=== PATIENT | female | born 1990 | race American Indian/Alaskan Native ===

== ENCOUNTER 2017-05-22 07:01 | Emergency (ER) | payer SELFPAY ==
[2017-05-22 07:41] VITALS: BP 122/67
[2017-05-22] MEDS ORDERED: MARCAINE 0.5% INFILTRATI ONE (09:16)
[2017-05-22] MEDS ORDERED: BOOSTRIX IM ONE (09:18)
--- NOTE | 2017-05-22 09:29 | Emergency Department Report ---
- General Chief complaint: Skin/Abscess/Foreign Body Stated complaint: ABSCESS Time Seen by Provider: 05/22/17 08:48 Source: patient Mode of arrival: Ambulatory Limitations: No Limitations - History of Present Illness Initial comments: This is a 27-year-old female nontoxic, well nourished in appearance, no acute signs of distress presents to the ED c/o boil in the right groin region x 2 days. Patient stated she was shaving prior to this and developed a small boil which then got bigger over time. Patient denies any pus, drainage, fever, chills , headache, n/v, chest pain, or shortness of breathe. Allergies includes PCN. Denies PMH. MD complaint: abscess/boil -: Gradual, days(s) (2) Tetanus Up to Date: unsure Severity: mild Severity scale (0 -10): 8 Quality: aching Consistency: constant Improves with: none Worsens with: none Context: none Associated symptoms: denies other symptoms Treatments Prior to Arrival: none - Related Data Previous Rx's Medication Instructions Recorded Last Taken Type Ibuprofen [Motrin] 800 mg PO Q8HR PRN #10 tablet 06/29/16 Unknown Rx Ibuprofen [Motrin] 600 mg PO Q8H PRN #30 tablet 05/22/17 Unknown Rx Sulfamethoxazole/Trimethoprim 1 each PO BID #14 tablet 05/22/17 Unknown Rx [Bactrim Ds Tablet] Allergies Allergy/AdvReac Type Severity Reaction Status Date / Time Penicillins Allergy Anaphylaxis Verified 04/22/16 09:11 Abscess Boil HPI - HPI Chief Complaint: Skin/Abscess/Foreign Body Stated Complaint: ABSCESS Time Seen by Provider: 05/22/17 08:48 Home Medications: Previous Rx's Medication Instructions Recorded Last Taken Type Ibuprofen [Motrin] 800 mg PO Q8HR PRN #10 tablet 06/29/16 Unknown Rx Ibuprofen [Motrin] 600 mg PO Q8H PRN #30 tablet 05/22/17 Unknown Rx Sulfamethoxazole/Trimethoprim 1 each PO BID #14 tablet 05/22/17 Unknown Rx [Bactrim Ds Tablet] Allergies/Adverse Reactions: Allergies Allergy/AdvReac Type Severity Reaction Status Date / Time Penicillins Allergy Anaphylaxis Verified 04/22/16 09:11 ED Review of Systems ROS: Stated complaint: ABSCESS Other details as noted in HPI Constitutional: denies: chills, fever Eyes: denies: eye pain, eye discharge, vision change ENT: denies: ear pain, throat pain Respiratory: denies: cough, shortness of breath, wheezing Cardiovascular: denies: chest pain, palpitations Endocrine: no symptoms reported Gastrointestinal: denies: abdominal pain, nausea, diarrhea Genitourinary: denies: urgency, dysuria, discharge Musculoskeletal: denies: back pain, joint swelling, arthralgia Skin: denies: rash, lesions Neurological: denies: headache, weakness, paresthesias Psychiatric: denies: anxiety, depression Hematological/Lymphatic: denies: easy bleeding, easy bruising ED Past Medical Hx - Past Medical History Previous Medical History?: Yes Additional medical history: Boil - Surgical History Past Surgical History?: No - Social History Smoking Status: Current Some Day Smoker Substance Use Type: Alcohol, Marijuana, Non Opiate Pain - Medications Home Medications: Home Medications Medication Instructions Recorded Confirmed Last Taken Type Ibuprofen [Motrin] 800 mg PO Q8HR PRN #10 tablet 06/29/16 Unknown Rx Ibuprofen [Motrin] 600 mg PO Q8H PRN #30 tablet 05/22/17 Unknown Rx Sulfamethoxazole/Trimethoprim 1 each PO BID #14 tablet 05/22/17 Unknown Rx [Bactrim Ds Tablet] ED Physical Exam - General Limitations: No Limitations General appearance: alert, in no apparent distress - Head Head exam: Present: atraumatic, normocephalic, normal inspection - Eye Eye exam: Present: normal appearance, PERRL, EOMI. Absent: scleral icterus, conjunctival injection, nystagmus, periorbital swelling, periorbital tenderness Pupils: Present: normal accommodation - ENT ENT exam: Present: normal exam, normal orophraynx, mucous membranes moist, TM's normal bilaterally, normal external ear exam - Neck Neck exam: Present: normal inspection, full ROM. Absent: tenderness, meningismus, lymphadenopathy, thyromegaly - Respiratory Respiratory exam: Present: normal lung sounds bilaterally. Absent: respiratory distress, wheezes, rales, rhonchi, stridor, chest wall tenderness, accessory muscle use, decreased breath sounds, prolonged expiratory - Cardiovascular Cardiovascular Exam: Present: regular rate, normal rhythm, normal heart sounds. Absent: systolic murmur, diastolic murmur, rubs, gallop - GI/Abdominal GI/Abdominal exam: Present: soft, normal bowel sounds - External exam: Present: normal external exam, other (lupe RN present during exam. 2 cm abscess to right groin region present with positive induration and flutance. ). Absent: erythema, swelling, lesions, lacerations, ecchymosis, bleeding - Extremities Exam Extremities exam: Present: normal inspection, full ROM, normal capillary refill. Absent: tenderness, calf tenderness - Back Exam Back exam: Present: normal inspection, full ROM. Absent: tenderness, CVA tenderness (R), CVA tenderness (L), muscle spasm, paraspinal tenderness, vertebral tenderness, rash noted - Neurological Exam Neurological exam: Present: alert, oriented X3 - Psychiatric Psychiatric exam: Present: normal affect, normal mood - Skin Skin exam: Present: warm, dry, intact, normal color. Absent: rash ED Course Vital Signs 05/22/17 07:38 Temperature 98 F Pulse Rate 66 Respiratory 18 Rate Blood Pressure 122/67 O2 Sat by Pulse 100 Oximetry - Reevaluation(s) Reevaluation #1: 05/22/17 09:30 Patient is speaking in full sentences with no signs of distress noted. - I & D Right Groin Type of Procedure: Complex Site: right groin Blade Size: 11 I & D Procedure: betadine prep, sterile drapes applied, sterile dressing applied , gauze wick placed Progress: Under sterile field, I used Betadine to cleanse the area. I then used 0.5% Marcaine plain with 25-gauge 5/8 needle to inject area for anesthetic purposes. Total volume injected 3 mL. I then used an 11 blade to make a 1 cm incision. About 2 mL's of purulent drainage has been noted. I then used a hemostat to break the abscess formation. I then used sterile 0.9% normal saline flush to flush the wound with total volume of 40 mL used. I then put a 1/4 iodoform packing to the incision. A sterile 4 x 4 with tape has been applied as dressing. Bleeding is under control. Patient tolerated the procedure well with no signs of distress noted. ED Medical Decision Making - Medical Decision Making 27 year-old female that presents with left groin abscess. I/D has been performed with no signs of distress/ Patient tolerated well. Patient was instrcuted to return in 2 days for packing removal and reassessment. Patient received tetanus in the ED. Will be d/c with bactrim and motrin. Critical care attestation.: If time is entered above; I have spent that time in minutes in the direct care of this critically ill patient, excluding procedure time. ED Disposition Clinical Impression: Encounter for incision and drainage procedure, Abscess Disposition: TO HOME OR SELFCARE Is pt being admited?: No Does the pt Need Aspirin: No Condition: Stable Instructions: Abscess Incision and Drainage (ED), Abscess (ED), Acute Wound Care (ED), Sulfamethoxazole/Trimethoprim (By mouth), Ibuprofen (By mouth) Additional Instructions: Return in 2 days for packing removal and reassessment of the abscess. Follow-up with a primary care doctor in 3-5 days or if symptoms worsen and continue return to the ED as soon as possible. Prescriptions: Ibuprofen [Motrin] 600 mg PO Q8H PRN #30 tablet PRN Reason: Pain Sulfamethoxazole/Trimethoprim [Bactrim Ds Tablet] 1 each PO BID #14 tablet Referrals: PRIMARY MD RADHA [Primary Care Provider] - 3-5 Days CORBIN COREAS MD [Staff Physician] - 3-5 Days [facility] [Outside] - 3-5 Days [facility] [Outside] - 3-5 Days Forms: Work/School Release Form(ED)
== END 2017-05-22 09:52 | disposition home or self-care (01) ==
LOC: ED 07:01
DX: L02.214 Cutaneous abscess of groin (principal); F17.210 Nicotine dependence, cigarettes, uncomplicated; F12.10 Cannabis abuse, uncomplicated; Z88.0 Allergy status to penicillin
CPT/HCPCS: 90471; 90715; 99282

== ENCOUNTER 2018-03-04 13:03 | Emergency (ER) | payer SELFPAY ==
[2018-03-04 13:10] VITALS: BP 132/89
--- NOTE | 2018-03-04 17:18 | Emergency Department Report ---
ED ENT HPI - General Chief complaint: Upper Respiratory Infection Stated complaint: FLU/STREP THROAT Time Seen by Provider: 03/04/18 16:44 Source: patient, family Mode of arrival: Ambulatory Limitations: No Limitations - History of Present Illness Initial comments: This is 28-year-old female here report that she has sore throat and nausea and vomiting and poor appetite for the last 3 days. She says she has been having fever and chills and taken Tylenol without any relief. Patient says she has been around someone that had strep before in the past. Denies any drooling or difficulty swallowing but reports pain with swallowing at 8 out of 10. Pain is achy and no alleviating factors. Denies any cough, shortness of breath is a congestion or runny nose. Denies any abdominal pain. Denies any neck pain or stiffness. MD complaint: sore throat Onset/Timin -: days(s) Location: throat Severity: severe Severity scale (0 -10): 8 Quality: aching Consistency: constant Improves with: none Worsens with: swallowing, eating Context-Epistaxis: other (posterior distress) Associated Symptoms: fever, pain with swallowing, sore throat. denies: cough, gum swelling, toothache, tinnitus, hearing loss, discharge from ear, rhinorrhea - Related Data Previous Rx's Medication Instructions Recorded Last Taken Type Ibuprofen [Motrin] 800 mg PO Q8HR PRN #10 tablet 06/29/16 Unknown Rx Ibuprofen [Motrin] 600 mg PO Q8H PRN #30 tablet 05/22/17 Unknown Rx Sulfamethoxazole/Trimethoprim 1 each PO BID #14 tablet 05/22/17 Unknown Rx [Bactrim Ds Tablet] Clindamycin [Clindamycin CAP] 300 mg PO Q8H 10 Days #30 cap 03/04/18 Unknown Rx Ibuprofen [Motrin] 800 mg PO Q8HR PRN #15 tablet 03/04/18 Unknown Rx Ondansetron [Zofran Odt] 4 mg PO Q6H PRN #20 tab.rapdis 03/04/18 Unknown Rx Allergies Allergy/AdvReac Type Severity Reaction Status Date / Time Penicillins Allergy Anaphylaxis Verified 04/22/16 09:11 ED Dental HPI - General Chief complaint: Upper Respiratory Infection Stated complaint: FLU/STREP THROAT Time Seen by Provider: 03/04/18 16:44 Source: patient Mode of arrival: Ambulatory Limitations: No Limitations - Related Data Previous Rx's Medication Instructions Recorded Last Taken Type Ibuprofen [Motrin] 800 mg PO Q8HR PRN #10 tablet 06/29/16 Unknown Rx Ibuprofen [Motrin] 600 mg PO Q8H PRN #30 tablet 05/22/17 Unknown Rx Sulfamethoxazole/Trimethoprim 1 each PO BID #14 tablet 05/22/17 Unknown Rx [Bactrim Ds Tablet] Clindamycin [Clindamycin CAP] 300 mg PO Q8H 10 Days #30 cap 03/04/18 Unknown Rx Ibuprofen [Motrin] 800 mg PO Q8HR PRN #15 tablet 03/04/18 Unknown Rx Ondansetron [Zofran Odt] 4 mg PO Q6H PRN #20 tab.rapdis 03/04/18 Unknown Rx Allergies Allergy/AdvReac Type Severity Reaction Status Date / Time Penicillins Allergy Anaphylaxis Verified 04/22/16 09:11 ED Review of Systems ROS: Stated complaint: FLU/STREP THROAT Other details as noted in HPI Constitutional: chills, fever Eyes: denies: eye pain, eye discharge, vision change ENT: throat pain. denies: ear pain, congestion Respiratory: denies: cough, shortness of breath, SOB with exertion, SOB at rest , stridor, wheezing Cardiovascular: denies: chest pain, palpitations, edema, syncope Endocrine: no symptoms reported Gastrointestinal: nausea, vomiting. denies: abdominal pain, diarrhea Genitourinary: denies: urgency, dysuria, discharge Musculoskeletal: denies: back pain, joint swelling, arthralgia Skin: denies: rash, lesions Neurological: denies: headache ED Past Medical Hx - Past Medical History Previous Medical History?: Yes Additional medical history: Boil - Surgical History Past Surgical History?: No - Family History Family history: hypertension - Social History Smoking Status: Never Smoker Substance Use Type: Marijuana - Medications Home Medications: Home Medications Medication Instructions Recorded Confirmed Last Taken Type Ibuprofen [Motrin] 800 mg PO Q8HR PRN #10 tablet 06/29/16 Unknown Rx Ibuprofen [Motrin] 600 mg PO Q8H PRN #30 tablet 05/22/17 Unknown Rx Sulfamethoxazole/Trimethoprim 1 each PO BID #14 tablet 05/22/17 Unknown Rx [Bactrim Ds Tablet] Clindamycin [Clindamycin CAP] 300 mg PO Q8H 10 Days #30 cap 03/04/18 Unknown Rx Ibuprofen [Motrin] 800 mg PO Q8HR PRN #15 tablet 03/04/18 Unknown Rx Ondansetron [Zofran Odt] 4 mg PO Q6H PRN #20 tab.rapdis 03/04/18 Unknown Rx ED Physical Exam - General Limitations: No Limitations General appearance: alert, appears intoxicated - Head Head exam: Present: atraumatic, normocephalic - Eye Eye exam: Present: normal appearance, PERRL, EOMI Pupils: Present: normal accommodation - ENT ENT exam: Present: mucous membranes moist. Absent: normal exam - Expanded ENT Exam Expanded Mouth exam: Present: normal external inspection, tongue normal. Absent: drooling, trismus, muffled voice, laceration Teeth exam: Present: normal inspection Throat exam: Positive: tonsillar erythema, tonsillomegaly, tonsillar exudate, other (oropharynx without exudate. Uvula is midline and oral airways patent). Negative: normal inspection, R peritonsillar mass, L peritonsillar mass - Neck Neck exam: Present: normal inspection, full ROM, lymphadenopathy (anterior;), other (no C-spine tenderness). Absent: tenderness, thyromegaly - Respiratory Respiratory exam: Present: normal lung sounds bilaterally. Absent: respiratory distress, chest wall tenderness - Cardiovascular Cardiovascular Exam: Present: regular rate, normal rhythm, normal heart sounds. Absent: systolic murmur, diastolic murmur - GI/Abdominal GI/Abdominal exam: Present: soft, normal bowel sounds. Absent: distended, tenderness, rigid, mass - Extremities Exam Extremities exam: Present: normal inspection, full ROM, normal capillary refill , other (No cce. + 2 pulses in all extremities, no neurovascular compromise). Absent: tenderness, pedal edema, joint swelling, calf tenderness - Neurological Exam Neurological exam: Present: alert, oriented X3, normal gait - Psychiatric Psychiatric exam: Present: normal affect, normal mood - Skin Skin exam: Present: warm, dry, intact, normal color. Absent: rash ED Course Vital Signs 03/04/18 03/04/18 13:07 17:27 Temperature 99.6 F Pulse Rate 96 H Respiratory 16 18 Rate Blood Pressure 132/89 O2 Sat by Pulse 99 Oximetry - Reevaluation(s) Reevaluation #1: 03/04/18 18:01 Patient given clindamycin oxygen milligram by mouth to start strep throat, Motrin 800 mg by mouth for sore throat and Deltasone 60 mg by mouth for tonsillar swelling. She was given Zofran 8 mg ODT for nausea. Patient is feeling better. ED Medical Decision Making - Medical Decision Making This is a 28-year-old female here report that she was exposed to strep and she is having sore throat, fever, nausea and vomiting, decreased appetite and been taking [id number] fever filler leaf cutter long this is not helping. Patient does not have any respiratory symptoms. Patient was seen and examined by myself and found to have enlarged tonsils, exudative pharyngitis and tonsillitis, oral airways patent and uvula is midline and oral mucosa is moist with normal tongue. She has anterior cervical lymphadenopathy , fever and chills with nausea and vomiting in the absence of respiratory symptoms. Based on [facility] criteria, patient with exudative pharyngitis and will be treated with clindamycin she is allergic to penicillin. I discussed diagnosis and treatment plan the patient and she voiced understanding and she has had strep throat in the past and was treated with clindamycin. Exudative pharyngitis, enlarged tonsils, fever, anterior cervical lymphadenopathy and nausea and vomiting -Patient was given Motrin 800 mg for sore throat and Deltasone 60 mg for enlarged tonsils. Will send home on Motrin -Clindamycin dosage of milligrams Dilaudid for strep throat and was sent home on clindamycin -Zofran 8 mg ODT for nausea which has been resolved and will send home and Zofran. Condition discharged from ED with her family member in stable condition. She is nontoxic in appearance and said her pain and her nausea is better. She is to follow-up with her primary care physician in 2-3 days and if she does not have a primary care physician she is to follow-up at [facility] in 2-3 days and she voiced understanding. Discharged home with prescription for clindamycin, Zofran and Motrin. Critical care attestation.: If time is entered above; I have spent that time in minutes in the direct care of this critically ill patient, excluding procedure time. ED Disposition Clinical Impression: Exudative pharyngitis, Fever and chills Nausea & vomiting Qualifiers: Vomiting type: unspecified Vomiting Intractability: non-intractable Qualified Code(s): R11.2 - Nausea with vomiting, unspecified Disposition: DC-01 TO HOME OR SELFCARE Is pt being admited?: No Does the pt Need Aspirin: No Condition: Stable Instructions: Fever in Adults (ED), Strep Throat (ED), Acute Nausea and Vomiting (ED) Additional Instructions: Please take antibiotic as prescribed Follow-up with primary care physician in 2-3 days If your condition worsens to include difficulty breathing, swallowing, chest pain, nausea and vomiting and fever, please return to the emergency room ANANDA. Take Motrin for fever and/or pain Increasing fluid intake Gargle with warm salt water and this will help her sore throat Take Zofran for nausea and/or vomiting Avoid spicy, carbonated and hot liquids Referrals: PRIMARY CARE,MD [Primary Care Provider] - 2-3 Days [facility] [Outside] - 2-3 Days Forms: Work/School Release Form(ED)
[2018-03-04] MEDS ORDERED: DELTASONE PO ONE (17:19)
[2018-03-04] MEDS ORDERED: MOTRIN PO ONE (17:19)
[2018-03-04] MEDS ORDERED: CLEOCIN PO ONE (17:19)
[2018-03-04] MEDS ORDERED: ZOFRAN ODT PO ONE (17:59)
== END 2018-03-04 18:26 | disposition home or self-care (01) ==
LOC: ED 13:03
DX: J02.9 Acute pharyngitis, unspecified (principal); R11.2 Nausea with vomiting, unspecified; F12.10 Cannabis abuse, uncomplicated; Z88.0 Allergy status to penicillin
CPT/HCPCS: 99282; J7512

== ENCOUNTER 2018-08-25 11:04 | Emergency (ER) | payer SELFPAY ==
[2018-08-25 11:10] VITALS: BP 124/80
[2018-08-25] MEDS ORDERED: TORADOL IM ONE (11:24)
[2018-08-25] MEDS ORDERED: BACTRIM DS PO ONE (11:24)
--- NOTE | 2018-08-25 11:35 | Emergency Department Report ---
ED ENT HPI - General Chief complaint: Sore Throat Stated complaint: RT FINGER INJURY/STREP THROAT Time Seen by Provider: 08/25/18 11:24 Source: patient Mode of arrival: Ambulatory Limitations: No Limitations - History of Present Illness Initial comments: 28 yo female with significant past medical history presents also complains of sore throat for 2 days and painful finger with laceration 1 week. Patient complains of recent URI symptoms including cough and runny nose. She's had a sore throat for 2 days. No fever documented. One week ago patient punched a wall sustaining a laceration to the PIP joint of her right hand. She is right- hand dominant. She has a healing laceration and continues to have pain at this area. No reports of recent travel or sick contacts. Tetanus is up-to-date. - Related Data Previous Rx's Medication Instructions Recorded Last Taken Type Ibuprofen [Motrin] 800 mg PO Q8HR PRN #10 tablet 06/29/16 Unknown Rx Ibuprofen [Motrin] 600 mg PO Q8H PRN #30 tablet 05/22/17 Unknown Rx Ondansetron [Zofran Odt] 4 mg PO Q6H PRN #20 tab.rapdis 03/04/18 Unknown Rx Benzonatate [Tessalon Perles] 100 mg PO Q8HR PRN #20 capsule 08/25/18 Unknown Rx Clindamycin [Clindamycin CAP] 300 mg PO Q8H 7 Days cap 08/25/18 Unknown Rx Ibuprofen [Motrin 800 MG tab] 800 mg PO Q8HR PRN #30 tablet 08/25/18 Unknown Rx Allergies Allergy/AdvReac Type Severity Reaction Status Date / Time Penicillins Allergy Anaphylaxis Verified 04/22/16 09:11 ED Dental HPI - General Chief complaint: Sore Throat Stated complaint: RT FINGER INJURY/STREP THROAT Time Seen by Provider: 08/25/18 11:24 Source: patient Mode of arrival: Ambulatory Limitations: No Limitations - Related Data Previous Rx's Medication Instructions Recorded Last Taken Type Ibuprofen [Motrin] 800 mg PO Q8HR PRN #10 tablet 06/29/16 Unknown Rx Ibuprofen [Motrin] 600 mg PO Q8H PRN #30 tablet 05/22/17 Unknown Rx Ondansetron [Zofran Odt] 4 mg PO Q6H PRN #20 tab.rapdis 03/04/18 Unknown Rx Benzonatate [Tessalon Perles] 100 mg PO Q8HR PRN #20 capsule 08/25/18 Unknown Rx Clindamycin [Clindamycin CAP] 300 mg PO Q8H 7 Days cap 08/25/18 Unknown Rx Ibuprofen [Motrin 800 MG tab] 800 mg PO Q8HR PRN #30 tablet 08/25/18 Unknown Rx Allergies Allergy/AdvReac Type Severity Reaction Status Date / Time Penicillins Allergy Anaphylaxis Verified 04/22/16 09:11 ED Review of Systems ROS: Stated complaint: RT FINGER INJURY/STREP THROAT Other details as noted in HPI Comment: All other systems reviewed and negative ED Past Medical Hx - Past Medical History Previous Medical History?: No Additional medical history: Boil - Surgical History Past Surgical History?: No - Social History Smoking Status: Never Smoker Substance Use Type: Marijuana - Medications Home Medications: Home Medications Medication Instructions Recorded Confirmed Last Taken Type Ibuprofen [Motrin] 800 mg PO Q8HR PRN #10 tablet 06/29/16 Unknown Rx Ibuprofen [Motrin] 600 mg PO Q8H PRN #30 tablet 05/22/17 Unknown Rx Ondansetron [Zofran Odt] 4 mg PO Q6H PRN #20 tab.rapdis 03/04/18 Unknown Rx Benzonatate [Tessalon Perles] 100 mg PO Q8HR PRN #20 capsule 08/25/18 Unknown Rx Clindamycin [Clindamycin CAP] 300 mg PO Q8H 7 Days cap 08/25/18 Unknown Rx Ibuprofen [Motrin 800 MG tab] 800 mg PO Q8HR PRN #30 tablet 08/25/18 Unknown Rx ED Physical Exam - General Limitations: No Limitations - Other Other exam information: General: No limitations, patient is alert in no acute distress Head exam: Atraumatic, normocephalic Eyes exam: Normal appearance ENT: Moist mucous membrane, normal oropharynx without erythema, exudates. No tender lymphadenopathy Neck exam: Normal inspection, full range of motion, no meningismus nontender Respiratory exam: Clear to auscultation bilateral, no wheezes, rales, crackles Cardiovascular: Normal rate and rhythm, Abdomen: Soft, nondistended, and nontender, with normal bowel sounds, no rebound, or guarding Extremity: Full range of motion normal inspection no deformity Back: Normal Inspection, full range of motion, no tenderness Neurologic: Alert, oriented x3, cranial nerves intact, no motor or sensory deficit Psychiatric: normal affect, normal mood Skin: Right hand PIP laceration 1 cm partially healing tender to palpation. No surrounding erythema, warmth, or drainage ED Course Vital Signs 08/25/18 11:09 Temperature 98.1 F Pulse Rate 77 Respiratory 16 Rate Blood Pressure 124/80 O2 Sat by Pulse 99 Oximetry ED Medical Decision Making - Radiology Data Radiology results: report reviewed RIGHT HAND, 3 views: History: Index finger injury. The bony architecture is intact. Bony alignment is normal. No soft tissue abnormalities are seen. The joint spaces appear preserved. IMPRESSION: Normal right hand. - Medical Decision Making No fracture. Will be treated with clindamycin to cover for delayed healing finger wound. Outpatient follow-up advised. Symptomatic treatment for URI symptoms - Differential Diagnosis fracture, contusion, sprain, laceration, viral syndrome, pharyngitis Critical Care Time: No Critical care attestation.: If time is entered above; I have spent that time in minutes in the direct care of this critically ill patient, excluding procedure time. ED Disposition Clinical Impression: Viral pharyngitis, Laceration of right index finger, URI (upper respiratory infection) Disposition: - TO HOME OR SELFCARE Is pt being admited?: No Does the pt Need Aspirin: No Condition: Stable Instructions: Pharyngitis (ED), Upper Respiratory Infection (ED), Finger Laceration (ED) Additional Instructions: Take the medication as prescribed. Follow up with your doctor or the clinic/doctor provided. Return if symptoms worsen as indicated by your discharge instructions Prescriptions: Benzonatate [Tessalon Perles] 100 mg PO Q8HR PRN #20 capsule PRN Reason: Cough Clindamycin [Clindamycin CAP] 300 mg PO Q8H 7 Days cap Ibuprofen [Motrin 800 MG tab] 800 mg PO Q8HR PRN #30 tablet PRN Reason: pain and/or fever Referrals: DANYA HARRIS [Primary Care Provider] - 3-[address] [facility] [Provider Group] - 3-5 Days Time of Disposition: 12:37
--- NOTE | 2018-08-25 12:15 | XRay Report ---
RIGHT HAND, 3 views: History: Index finger injury. The bony architecture is intact. Bony alignment is normal. No soft tissue abnormalities are seen. The joint spaces appear preserved. IMPRESSION: Normal right hand.
== END 2018-08-25 12:57 | disposition home or self-care (01) ==
LOC: ED 11:04
DX: S61.210A Laceration without foreign body of right index finger without damage to nail, initial encounter (principal); J02.8 Acute pharyngitis due to other specified organisms; J06.9 Acute upper respiratory infection, unspecified; F12.10 Cannabis abuse, uncomplicated; Z88.0 Allergy status to penicillin; W22.01XA Walked into wall, initial encounter; Y93.89 Activity, other specified; Y92.89 Other specified places as the place of occurrence of the external cause; Y99.8 Other external cause status
CPT/HCPCS: 29130; 73130; 96372; 99283; J1885

== ENCOUNTER 2019-03-03 07:01 | Emergency (ER) | payer SELFPAY ==
--- NOTE | 2019-03-03 07:56 | XRay Report ---
LEFT KNEE 3 VIEWS INDICATION / CLINICAL INFORMATION: Left knee pain. Unspecified trauma. COMPARISON: None available. FINDINGS: BONES and JOINT(S): No acute fracture or subluxation. No significant arthritis. SOFT TISSUES: No significant abnormality. ADDITIONAL FINDINGS: None. IMPRESSION: No significant abnormality of the left knee. Signer Name: Ricardo Fuller MD Signed: 03/03/2019 7:52 AM Workstation Name: [id number]
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
== END 2019-03-03 08:59 | disposition home or self-care (01) ==
LOC: ED 07:01
DX: S83.92XA Sprain of unspecified site of left knee, initial encounter (principal); F17.200 Nicotine dependence, unspecified, uncomplicated; F12.10 Cannabis abuse, uncomplicated; Z79.899 Other long term (current) drug therapy; Z88.0 Allergy status to penicillin; V80.010A Animal-rider injured by fall from or being thrown from horse in noncollision accident, initial encounter; Y93.89 Activity, other specified; Y92.89 Other specified places as the place of occurrence of the external cause; Y99.8 Other external cause status